=== PATIENT | male | born 1975 | race Caucasian/White ===

== ENCOUNTER 2019-12-23 04:04 | Emergency (ER) | payer MEDICAID, OTHER ==
[~2019-12-23] VITALS: Ht 188 cm; Wt 73.5 kg
[2019-12-23 05:30] VITALS: BP 132/82
== END 2019-12-23 06:48 | disposition home or self-care (01) ==
LOC: ER 04:04
DX: M79.604 Pain in right leg (principal); M54.2 Cervicalgia; F12.10 Cannabis abuse, uncomplicated; Y08.89XA Assault by other specified means, initial encounter; Y93.89 Activity, other specified; Y99.8 Other external cause status; Y92.89 Other specified places as the place of occurrence of the external cause
CPT/HCPCS: 70490; 73590